=== PATIENT | female | born 1990 | race Caucasian/White ===

== ENCOUNTER 2017-01-14 16:58 | Emergency (ER) | payer OTHER ==
[~2017-01-14] VITALS: Ht 175.3 cm; Wt 59.0 kg
--- NOTE | 2017-01-14 17:10 | NUR ---
ASHER RA 77 FROM A CLINIC,CHEST PAIN X 2 WEEKS,GETTING WORSE. SEEN BY MD FOR EVAL. VSS. SAFETY AND COMFORT MEASURES PROVIDED. WILL MONITOR.
--- NOTE | 2017-01-14 17:40 | NUR ---
PT MEDICATED ORDERED.
[2017-01-14 17:57] LABS: BASOPHILS % (AUTO) 0.5 % (0.0-2.0); EOSINOPHILS % (AUTO) 0.5 % (0.0-6.0); HEMATOCRIT 42 % (33-45); LYMPHOCYTES # (AUTO) 2.5 /CMM (0.8-4.8); LYMPHOCYTES % (AUTO) 34.4 % (20.0-44.0); MEAN CORPUSCULAR HEMOGLOBIN 29 PG (26.0-33.0); MEAN CORPUSCULAR HGB CONC 33 g/dl (31.0-36.0); MEAN CORPUSCULAR VOLUME 87 fL (82-100); MONOCYTES # (AUTO) 0.5 /CMM (0.1-1.30); MONOCYTES % (AUTO) 6.6 % (2.0-12.0); NEUTROPHILS # (AUTO) 4.2 /CMM (1.8-8.9); PLATELET COUNT (AUTO) 292 /CMM (150-450); RDW COEFFICIENT OF VARIATION 12.3 (11.5-15.0); RED BLOOD CELL COUNT(AUTO) 4.85 MIL/uL (4.0-5.2); WHITE BLOOD COUNT (AUTO) 7.3 K/uL (4.3-11.0)
[2017-01-14 18:08] LABS: CALCIUM, SERUM 9.6 mg/dL (8.5-10.1); CARBON DIOXIDE 25 mmol/L (21-32); CHLORIDE 104 mmol/L (98-107); CREATININE 0.9 mg/dL (0.6-1.3); GLUCOSE 108 mg/dL (74-106); POTASSIUM 3.7 mmol/L (3.5-5.1); SODIUM SERUM 139 mmol/L (136-145); UREA NITROGEN, BLOOD 13 mg/dL (7-18)
[2017-01-14 18:14] LABS: INR 1.01 (0.87-1.13); PARTIAL THROMBOPLASTIN TIME 24 SEC (23-34); PROTHROMBIN TIME 10.5 SECS (9.5-12.7)
[2017-01-14 18:15] LABS: D-DIMER < 0.19 mg/L(FEU (0.17-0.50)
[2017-01-14 19:05] LABS: TROPONIN I < 0.017 ng/mL (0.00-0.056)
[2017-01-14 19:55] VITALS: BP 124/69
--- NOTE | 2017-01-14 19:56 | NUR ---
Patient discharged to home in stable condition. Written and verbal after care instructions given. Patient verbalizes understanding of instruction.IV removed. Catheter intact and site benign. Pressure and 4x4 applied to site. No bleeding noted. PT ambulatory with a steady gait
== END 2017-01-14 20:07 | disposition home or self-care (01) ==
LOC: ER 16:59
DX: R07.89 Other chest pain (principal)
CPT/HCPCS: 36415; 71010-TC; 80048-TC; 84484-TC; 84703-TC; 85025-TC; 85378-TC; 85730-TC; A4606; J2270; J2405; J7030; J7050; Q9967; Z7610